=== PATIENT | male | born 1990 | race Hispanic/Latino ===

== ENCOUNTER 2022-04-05 16:33 | Emergency (ER) | payer SELFPAY ==
[2022-04-05 16:35] VITALS: BP 148/94; PULSE 56; RESP 16; TEMP 36.1; O2SAT 96; BMI 38.7
--- NOTE | 2022-04-05 18:24 | CT_ITS ---
STUDY: CT Abdomen And Pelvis W/O Contrast Injection 04/05/2022 7:27 PM REASON FOR EXAM: Male, 31 years old. ABDOMINAL PAIN Flank pain TECHNIQUE: Transaxial images were obtained without oral contrast, and without intravenous contrast. Individualized dose optimization techniques were used for this CT. COMPARISON: None. FINDINGS: The visualized lung bases are unremarkable. The visualized portions of the heart are within normal limits. Unremarkable liver. Unremarkable gallbladder and extrahepatic biliary system. Unremarkable spleen. Unremarkable pancreas. Unremarkable bilateral adrenal glands. No acute findings of the right kidney. No acute findings of the left kidney. Unremarkable visualized stomach. Unremarkable small intestine. Unremarkable colon. The appendix is visualized and appears unremarkable. There are no acute findings of the abdominal aorta. Unremarkable inferior vena cava. Subcentimeter mesenteric lymph nodes. Unremarkable urinary bladder. Unremarkable abdominal wall. Unremarkable osseous structures. CT/Abdomen/Pelvis without Cont IMPRESSION: (NOT LISTED IN ORDER OF SIGNIFICANCE) There are no acute findings. There are no renal stones. There is no hydronephrosis. Other findings as above. Electronically Signed: Luis Alberto Charles MD at 19:29 EST ,
--- NOTE | 2022-04-05 18:25 | EDS_ITS ---
HPI History of Present Illness Chief Complaint: Lower Extremity Injury Informant: patient Limited: language barrier Onset/Context/Timing Onset: Yesterday Context: Gradual Onset Timing: Continuous Worsened by: Urination Relieved by: Nothing Narrative Narrative: Patient presents with left lower abdominal pain that began yesterday. Patient states he has burning pain in his bladder that goes into his testicle. Patient describes it as aching. Patient states the pain also goes into his right thigh. Patient admits to some nausea and vomiting. Patient states he has burning with urination. Patient denies any hematuria. Patient denies any fevers or chills. Patient denies any back pain. Patient states he has a history of varicose veins in his groin area. Patient is concerned that there could be a blood clot in these. PFSH PFSH Medical History no medical history no medical history Home Medications metformin 500 mg tablet 500 mg PO BID #60 tabs 04/05/22 [Rx Last Taken Unknown] Allergy/AdvReac Type Severity Reaction Status Date / Time No Known Allergies Allergy Verified 04/05/22 18:21 Surgical History no surgical history no surgical history Social History Smoking Status: Never smoker ROS ROS ED Constitutional Constitutional ED: Denies chills or fever(s) Eyes Eyes: Denies blurry vision or change in vision ENT ENT ED: Denies rhinorrhea or sore throat Cardiovascular Cardiovascular: Denies chest pain or palpitations Respiratory/Chest Respiratory/Chest: Denies cough or dyspnea Gastrointestinal Gastrointestinal: Reports nausea and vomiting Genitourinary Genitourinary ED: Reports dysuria; Denies hematuria Musculoskeletal Musculoskeletal: Denies back pain or neck pain Integumentary Denies abscess or rash Neurologic Neurologic: Denies headache(s) or weakness Allergic/Immunologic Allergic/Immunologic ED: Denies mouth swelling or urticaria EXAM Physical Exam Const Vital Signs: 04/05/22 16:35 04/05/22 18:25 Temperature 97.0 F L Temperature Source Temporal Pulse Rate 56 L Respiratory Rate 16 Respiratory Effort Normal Non-Labored Respiratory Pattern Normal Blood Pressure 148/94 H Blood Pressure Mean 112 Pulse Ox 96 Oxygen Delivery Method Room Air Positive well nourished and well developed General Appearance ED: well developed and NAD HEENT Reports moist mucous membranes Neck supple and no JVD Resp normal respiratory effort and clear to auscultation bilaterally Cardio regular rate, regular rhythm and no murmurs GI normal to inspection, nondistended, normoactive bowel sounds Palpation: soft and tender LLQ, LUQ and suprapubic; Negative for guarding or rebound tenderness present Extremity normal to inspection Extremity Narrative: There is mild tenderness over the right thigh. There is no bony crepitance or step-off. There is good range of motion. General Extremety ED: Yes tenderness; Negative for edema General Extremity: Negative for edema Neuro oriented x3, CN's II-XII intact bilaterally and no sensory deficits noted Sensorium / Orientation: alert Motor Exam: strength 5/5 throughout Psych mental status grossly normal Skin no rashes or lesions noted MDM MDM MDM Narrative Medical decision making narrative: Differential diagnosis includes ureteral calculus, urinary tract infection, pyelonephritis, DVT, and electrolyte abnormality. CBC will be obtained to assess for leukocytosis and anemia. Basic metabolic profile will be obtained to assess for electrolyte abnormality and renal function. D-dimer will be obtained to assess for DVT. Urinalysis will be obtained to assess for urinary tract infection. CT scan of the abdomen pelvis will be obtained to assess for ureteral calculus. Lab Data Attestation: I reviewed the patient's lab results. Lab results narrative: CBC was reviewed and was within normal limits. D-dimer was reviewed and was slightly elevated at 1.20. Basic metabolic profile was reviewed. Glucose was elevated at 398. Anion gap was normal. CO2 was normal. Sodium and potassium were normal. Urinalysis was reviewed. Glucose was 1000. There is no evidence of urinary tract infection or hematuria. Labs: Laboratory Results - last 24 hr 04/05/22 04/05/22 04/05/22 18:35 18:35 18:35 WBC 4.8 RBC 5.49 Hgb 16.2 Hct 48.3 MCV 88.0 MCH 29.5 MCHC 33.5 RDW Std Deviation 37.9 RDW Coeff of Stacia 11.9 Plt Count 134 L MPV 12.1 H Immature Gran % (Auto) 0.200 Neut % (Auto) 46.4 L Lymph % (Auto) 35.1 [place]osh[place] % (Auto) 15.2 H Eos % (Auto) 2.3 Baso % (Auto) 0.8 Absolute Neuts (auto) 2.2 Absolute Lymphs (auto) 1.68 Nucleated RBC % 0 D-Dimer Quant (PE/DVT) 1.20 H* Sodium 136 Potassium 4.0 Chloride 101 Carbon Dioxide 28.0 Anion Gap 7 BUN 10 Creatinine 0.76 Estim Creat Clear Calc 145.41 Est GFR (MDRD) Af Amer 154 Est GFR (MDRD) Non-Af 127 BUN/Creatinine Ratio 13.2 Glucose 398 H Calcium 9.0 Urine Color Urine Clarity Urine pH Ur Specific [place] Urine Protein Urine Glucose (UA) Urine Ketones Urine Occult Blood Urine Nitrite Urine Bilirubin Urine Urobilinogen Ur Leukocyte Esterase Urine RBC Urine WBC Ur Squamous Epith Cells Urine Bacteria Urine Mucus 04/05/22 19:40 WBC RBC Hgb Hct MCV MCH MCHC RDW Std Deviation RDW Coeff of Stacia Plt Count MPV Immature Gran % (Auto) Neut % (Auto) Lymph % (Auto) [place]osh[place] % (Auto) Eos % (Auto) Baso % (Auto) Absolute Neuts (auto) Absolute Lymphs (auto) Nucleated RBC % D-Dimer Quant (PE/DVT) Sodium Potassium Chloride Carbon Dioxide Anion Gap BUN Creatinine Estim Creat Clear Calc Est GFR (MDRD) Af Amer Est GFR (MDRD) Non-Af BUN/Creatinine Ratio Glucose Calcium Urine Color Yellow Urine Clarity Clear Urine pH 6.5 Ur Specific [place] 1.010 Urine Protein 15 H Urine Glucose (UA) 1000 H Urine Ketones 5 H Urine Occult Blood Negative Urine Nitrite Negative Urine Bilirubin Negative Urine Urobilinogen Normal Ur Leukocyte Esterase Negative Urine RBC 0-5 SEEN Urine WBC 0-5 SEEN Ur Squamous Epith Cells 0-5 SEEN Urine Bacteria RARE Urine Mucus 0 SEEN Radiography Diagnostic Testing: Clinical Impression(s) from Imaging Studies Abdomen/Pelvis CT 04/05/22 18:24 IMPRESSION: (NOT LISTED IN ORDER OF SIGNIFICANCE) There are no acute findings. There are no renal stones. There is no hydronephrosis. Other findings as above. Electronically Signed: Luis Alberto Charles MD at 19:29 EST , CT scan of the abdomen pelvis was obtained. There is no acute abnormality noted. There is no free air or free fluid. There is no evidence of bowel obstruction, ureteral calculus, hydroureter, or hydronephrosis this was interpreted by the radiologist and was also independently reviewed by myself. Treatment and Re-Evaluation Narrative: Patient was advised of his findings. Patient was advised that he will need to be started on metformin for his elevated glucose. Patient was referred to a primary care physician for follow-up care. Patient was advised that he may need an outpatient venous duplex of his lower extremity because of the elevated D-dimer. I do not feel this needs to be done emergently especially since it is not available in the emergency department at this time. Patient was instructed to return if worse in any way. Patient was instructed return if any chest pain or shortness of breath. Patient understood and was agreeable with the plan. All questions were answered. Discharge Plan Triage Chief Complaint: Lower Extremity Injury ED Provider: Dio Madrid Dx/Rx/DC Orders Clinical Impression: Diabetes mellitus, Hyperglycemia Instructions: ED Diabetes- Overview Prescriptions: New metformin 500 mg tablet 500 mg PO BID Qty: 60 0RF Other Ambulatory Orders: Venous Duplex US, Unilateral (Stat) Facility: [facility] - Location: [facility] Ordered By: Dr. Dio Madrid Primary Care Provider: Care Physician,[place] Primary Referrals: Janey Salinas [Non-Staff] - 3-5 Days NOT,DEFINED [Non-Staff] - Activity Restrictions/Additional Instructions: Since you were concerned for blood clots, we did a blood test for blood clots. This was elevated. You will need to come back to have an ultrasound of your right leg to check for blood clots. This can be done tomorrow. Print Language: Icelandic Disposition Disposition: Home, Self Care
[2022-04-05 18:46] LABS: Absolute Lymphocyte Count 1.68 X10^3/uL (0.83-4.51); Absolute Neutrophil Count 2.2 X10^3/uL (2.0-7.7); Basophil# 0.04 X10^3/uL; Basophil% 0.8 % (0-1); Eosinophil# 0.11 X10^3/uL; Eosinophils% 2.3 % (0-5); Hematocrit 48.3 % (40-54); Hemoglobin 16.2 g/dL (13.0-16.5); Lymphocyte # 1.68 X10^3/ul (0.83-4.51); Lymphocyte % 35.1 % (19-41); Mean Corp Hgb Conc 33.5 g/dL (32-36); Mean Corpuscular Hgb 29.5 pg (27.0-32.0); Mean Platelet Vol. 12.1 fl (6.2-12.0); Monocyte# 0.73 X10^3/uL; Monocyte% 15.2 % (0-10); NRBC Flagged by Analyzer 0 % (0-5); Neutrophil # 2.22 X10^3/uL (2.7-7.7); Neutrophil % 46.4 % (47-70); Platelet Count 134 K/mm3 (150-450); RBC Distribution Width CV 11.9 % (11.6-14.6); RBC Distribution Width SD 37.9 fl (35.1-43.9); Red Blood Count 5.49 M/mm3 (4.6-6.2); White Blood Count 4.8 K/mm3 (4.4-11.0)
[2022-04-05] MEDS: 0.9% Normal Saline 1,000 ML 1000 ML IV (18:52)
[2022-04-05] MEDS: Ondansetron 4 MG/2 ML Vial IV (18:52)
[2022-04-05] MEDS: Morphine 4 MG/ML Syringe IV (18:52)
[2022-04-05 18:57] LABS: Anion Gap 7 (5-15); BUN 10 mg/dL (7-18); BUN/Creat Ratio 13.2 RATIO (10-20); Chloride 101 mmol/L (98-107); Creatinine, Serum 0.76 mg/dL (0.70-1.30); EST Glomerular Filtration Rate 127 mL/min (>60); Est Glom Filt Rate - Afr Amer 154 mL/min (>60); Estimated Creatinine Clearance 145.41 ml/min; Glucose 398 mg/dL (74-106); Sodium Level 136 mmol/L (136-145)
[2022-04-05 19:49] LABS: Mucous, Urine 0 SEEN /hpf (<or=2+)
[2022-04-05 19:56] LABS: Color, Urine Yellow (Yellow); Glucose, Dipstick 1000 mg/dl (Normal); Ketone-Dipstick 5 mg/dl (Negative); Leukocyte Esterase-Dipstick Negative /ul (Negative); Nitrite-Dipstick Negative (Negative); Occult Blood-Urine Negative /ul (Negative); Protein-Dipstick 15 mg/dl (Negative); Urine Bilirubin Dipstick Negative (Negative); Urine Clarity Clear (Clear); Urine Urobilinogen Normal (Normal); Urine pH 6.5 (5.0 - 8.0)
[2022-04-05 20:11] LABS: Bacteria RARE /hpf (None Seen); Red Blood Cells-Urine 0-5 SEEN /hpf (0-5); Squamous Epithelial Cells - UA 0-5 SEEN /hpf (0-5); White Blood Cells 0-5 SEEN /hpf (0-5)
== END 2022-04-05 21:35 | disposition home or self-care (01) ==
PROVIDERS: Emergency Provider Emergency Medicine; Visit Provider Emergency Medicine
DX: E11.65 Type 2 diabetes mellitus with hyperglycemia (principal)
CPT/HCPCS: 74176; 80048; 81001; 85025; 85379; 96360; 99283; J7030; J2405

== ENCOUNTER → 2022-04-06 | Outpatient (CLI) | payer SELFPAY ==
--- NOTE | 2022-04-06 12:52 | VDLE_ITS ---
Reason For Study: LEG PAIN RIGHT LEFT GSV is normal. CFV is compressible, spontaneous, phasic, CFV is compressible, spontaneous, phasic, competent, and demonstrates normal competent and demonstrates normal augmentation. augmentation. FV is compressible, spontaneous, phasic, competent and demonstrates normal augmentation. POP V is compressible, spontaneous, phasic, competent and demonstrates normal augmentation. T/P Trunk is compressible. PTV is compressible. RT PerV is compressible. Procedure This is a venous duplex using B-mode, color flow and spectral Doppler. Exam performed in department. The exam was diagnostic. A preliminary report was called and/or faxed to Vanita Meyer - pt's PCP. VL/Venous Duplex US, Unilateral Interpretation Summary Deep veins of the right lower extremity are patent and compressible segmentally . There is no evidence of right lower extremity deep vein thrombosis. The right great saphen[place] us vein appears patent and compressible segmentally. Ordering Physician: Dio Madrid Referring Physician: Vanita Meyer Performed By: Syed Blevins, LUCY
== END | disposition home or self-care (01) ==
LOC: CVS 12:50
PROVIDERS: PCP Nurse Practitioner Family; Visit Provider Emergency Medicine
DX: M79.661 Pain in right lower leg (principal)
CPT/HCPCS: 93971

== ENCOUNTER → 2022-04-20 | Outpatient (CLI) | payer SELFPAY ==
--- NOTE | 2022-04-20 16:02 | US_ITS ---
STUDY: SCROTUM ULTRASOUND REASON FOR EXAM: Male, 31 years old patient with bilateral scrotal pain. TECHNIQUE: Ultrasound evaluation of the scrotum was performed with color Doppler and static al-scale imaging. COMPARISON: Prior comparison studies are not available for review at this time. FINDINGS: RIGHT TESTICLE INTRATESTICULAR: There is a normal size of the right testicle. The right testicle measures 3.3 x 4.4 x 2.4 cm. There is a heterogeneous echotexture. There is normal arterial and normal venous vascularity. There is no demonstrated right testicular mass or cyst. EXTRATESTICULAR: The epididymis is normal in size. The epididymis head measures 8.2 x 6.1 x 10.5 mm. There is normal vascularity of the epididymis. There is a cystic structure within the epididymis, with low level echoes, consistent with a spermatocele. There may also be some epididymal cysts. There is a small hydrocele. There are prominent extratesticular veins consistent with a varicocele. There is no demonstrated extratesticular mass or cyst. LEFT TESTICLE INTRATESTICULAR: There is a normal size of the left testicle. The left testicle measures 4.5 x 2.4 x 2.9 cm. There is a heterogeneous echotexture. There is normal arterial and normal venous vascularity. There is no demonstrated left testicular mass or cyst. EXTRATESTICULAR: The epididymis is normal in size. The epididymis head measures 1.1 x 0.6 x 0.6 cm. There is normal vascularity of the epididymis. There is no demonstrated epididymal cystic structure. There is no demonstrated hydrocele. There are prominent extratesticular veins consistent with a varicocele. There is no demonstrated extratesticular mass or cyst. US/Testicular with Arterial Flow IMPRESSION: 1. No sonographic evidence for testicular torsion or mass. 2. Bilateral varicoceles. 3. Small right-sided hydrocele. Electronically Signed: Lisbeth Santacruz MD at 2:48 EST ,
== END | disposition home or self-care (01) ==
LOC: US 16:04
PROVIDERS: PCP Nurse Practitioner Family; Visit Provider Nurse Practitioner Family
DX: N50.819 Testicular pain, unspecified (principal)
CPT/HCPCS: 76870; 93976